=== PATIENT | female | born 1965 | race Native Hawaiian/Other Pacific Islander ===

== ENCOUNTER 2023-09-29 12:19 | Emergency (ER) | payer OTHER ==
[~2023-09-29] VITALS: Ht 165.1 cm; Wt 59.0 kg
[2023-09-29 12:20] VITALS: TEMP 100.9
[2023-09-29 13:36] LABS: PLATELET COUNT 239 K/uL (152-353)
[2023-09-29] MEDS ORDERED: CLINDAMYCIN PHOSPHATE IN D5W 50 ML IVPB ONE ×2 (16:45→17:05)
[2023-09-29] MEDS ORDERED: SODIUM CHLORIDE 0.9% 1,000 ML IV ONE ×2 (16:45→17:02)
[2023-09-29] MEDS ORDERED: CLINDAMYCIN PHOSPHATE IN D5W 50 ML IV ONE ×2 (17:02→17:03)
[2023-09-29] MEDS ORDERED: MORPHINE SULFATE 2 MG ML INJ ONE (17:15)
[2023-09-29] MEDS ORDERED: Ondansetron HCl 4 MG INJ INJ ONE (17:15)
[2023-09-29] MEDS ORDERED: MORPHINE SULFATE 2 MG ML ONE (17:31)
[2023-09-29 19:10] VITALS: BP 95/51
== END 2023-09-29 19:10 | disposition short-term general hospital (02) ==
LOC: ED 12:19
PROVIDERS: Internal Medicine Endocrinology, Diabetes & Metabolism
DX: R10.9 Unspecified abdominal pain (principal); K52.9 Noninfective gastroenteritis and colitis, unspecified; L98.8 Other specified disorders of the skin and subcutaneous tissue; E86.0 Dehydration; D64.89 Other specified anemias
CPT/HCPCS: 36415; 80053; 81000; 82150; 82550; 83605; 83690; 85027; 87088; 96361; 96365; 99285; J2270; J2405; J3490